=== PATIENT | male | born 1990 | race African-American/Black ===

== ENCOUNTER 2018-05-04 08:48 | Emergency (ER) | payer SELFPAY ==
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
== END 2018-05-04 09:50 | disposition home or self-care (01) ==
LOC: ER 08:48
DX: M54.5 Low back pain (principal); V43.52XA Car driver injured in collision with other type car in traffic accident, initial encounter; Y92.410 Unspecified street and highway as the place of occurrence of the external cause; F17.290 Nicotine dependence, other tobacco product, uncomplicated
CPT/HCPCS: 99284